=== PATIENT | female | born 1995 | race Caucasian/White ===

== ENCOUNTER 2018-10-29 15:16 | Outpatient (CLI) | payer OTHER ==
[2018-10-29] MEDS ORDERED: PRENATAL TABLE1 EAC1 PO (15:30)
== END 2018-10-29 19:19 | disposition home or self-care (01) ==
LOC: OBS/DEL 15:16
DX: O26.872 Cervical shortening, second trimester (principal); Z34.82 Encounter for supervision of other normal pregnancy, second trimester

== ENCOUNTER 2018-11-09 23:54 | Outpatient (CLI) | payer OTHER ==
[~2018-11-09 23:54] MED LIST: PRENATAL TABLE1 EAC1 PO
== END 2018-11-10 02:34 | disposition home or self-care (01) ==
LOC: OBS/DEL 23:54
DX: O60.02 Preterm labor without delivery, second trimester (principal); O43.122 Velamentous insertion of umbilical cord, second trimester; Z34.82 Encounter for supervision of other normal pregnancy, second trimester; O26.872 Cervical shortening, second trimester

== ENCOUNTER 2018-11-22 07:42 | Inpatient (IN) | payer OTHER ==
[~2018-11-22] VITALS: Ht 162.6 cm; Wt 86.6 kg
[2018-11-22] MEDS ORDERED: PROGESTERONE200 MG PO (08:35)
[2018-11-23] MEDS ORDERED: KEFLEX500 MG PO (12:16)
== END 2018-11-23 13:37 | disposition home or self-care (01) | DRG 832 ==
LOC: LDR 07:42
PROVIDERS: ADMIT Specialist
PROC: 4A1HXCZ Monitoring of Products of Conception, Cardiac Rate, External Approach (ICD-10-PCS; principal; 2018-11-22)
DX: O24.410 Gestational diabetes mellitus in pregnancy, diet controlled (principal); O47.02 False labor before 37 completed weeks of gestation, second trimester; Z34.02 Encounter for supervision of normal first pregnancy, second trimester

== ENCOUNTER 2018-12-20 12:23 | Inpatient (IN) | payer OTHER ==
[~2018-12-20] VITALS: Ht 162.6 cm; Wt 86.6 kg
[~2018-12-20 12:23] MED LIST changes: +KEFLEX500 MG PO; +PROGESTERONE200 MG PO
== END 2018-12-23 15:01 | disposition home or self-care (01) | DRG 807 ==
LOC: OBS/DEL 12:23 → LDR 18:12 → OB/GYN 18:12 → LDR 21:40 → OB/GYN 12-21 02:31
PROVIDERS: ADMIT Specialist
PROC: 3E033VJ Introduction of Other Hormone into Peripheral Vein, Percutaneous Approach (ICD-10-PCS; 2018-12-20)
PROC: 4A1HXCZ Monitoring of Products of Conception, Cardiac Rate, External Approach (ICD-10-PCS; 2018-12-20)
PROC: 10E0XZZ Delivery of Products of Conception, External Approach (ICD-10-PCS; principal; 2018-12-21 07:00)
DX: O60.14X0 Preterm labor third trimester with preterm delivery third trimester, not applicable or unspecified (principal); Z37.0 Single live birth; Z3A.31 31 weeks gestation of pregnancy

== ENCOUNTER 2023-12-17 11:52 | Outpatient (CLI) | payer OTHER | END 2023-12-17 11:53 | disposition home or self-care (01) | LOC: PRENATAL 11:52 | PROVIDERS: ATTEND Obstetrics & Gynecology Maternal & Fetal Medicine | DX: O36.80X0 Pregnancy with inconclusive fetal viability, not applicable or unspecified (principal); Z36.82 Encounter for antenatal screening for nuchal translucency; O26.879 Cervical shortening, unspecified trimester; O24.419 Gestational diabetes mellitus in pregnancy, unspecified control; Z3A.12 12 weeks gestation of pregnancy ==

== ENCOUNTER 2024-01-03 10:02 | Day surgery (SDC) | payer OTHER ==
[2023-12-31 10:37] LABS: HEMATOCRIT 38.1 % (36.0-45.00); HEMOGLOBIN 13.1 g/dL (12.0-15.00); MEAN CELL VOLUME 88.7 fL (80.00-100.00); MEAN CORPUSCULAR HEMOGLOBIN 30.4 pg (27.00-32.0); MEAN CORPUSCULAR HGB CONC 34.3 g/dl (32.0-36.0); PLATELET COUNT 220 K/uL (150-450); RED CELL DISTRIBUTION WIDTH 13.7 % (11.5-14.5)
[2023-12-31 11:10] LABS: INR < 0.93; PARTIAL THROMBOPLASTIN TIME 28.2 SECONDS (22.0-34.0); PROTHROMBIN TIME 10.2 SECONDS (9.0-11.5)
[2023-12-31 12:21] LABS: RH POSITIVE
[2024-01-03] MEDS ORDERED: METRONIDAZOLE/SODIUM CHLORIDE 500 MG/100 ML PIGGYBACK IV ONE (13:45)
[2024-01-03] MEDS ORDERED: POVIDONE-IODINE 118 ML BOTT TOP ONE (13:45)
[2024-01-03] MEDS ORDERED: MORPHINE SULFATE 4 MG/ML VIAL IV ONE (15:40)
[2024-01-04] MEDS ORDERED: METRONIDAZOLE/SODIUM CHLORIDE 5 MG/ML ML IV ONE (19:15)
== END 2024-01-03 20:30 | disposition home or self-care (01) ==
LOC: CIR.AMB 10:02
PROVIDERS: Obstetrics & Gynecology; ATTEND Obstetrics & Gynecology Maternal & Fetal Medicine
DX: O34.32 Maternal care for cervical incompetence, second trimester (principal); Z3A.14 14 weeks gestation of pregnancy

== ENCOUNTER 2024-01-17 14:07 | Outpatient (CLI) | payer OTHER | END 2024-01-17 14:08 | disposition home or self-care (01) | LOC: PRENATAL 14:07 | PROVIDERS: ATTEND Obstetrics & Gynecology Maternal & Fetal Medicine | DX: O26.849 Uterine size-date discrepancy, unspecified trimester (principal); O34.30 Maternal care for cervical incompetence, unspecified trimester; O26.879 Cervical shortening, unspecified trimester; O24.419 Gestational diabetes mellitus in pregnancy, unspecified control; Z3A.16 16 weeks gestation of pregnancy ==

== ENCOUNTER 2024-02-08 12:05 | Outpatient (CLI) | payer OTHER | END 2024-02-08 12:06 | disposition home or self-care (01) | LOC: PRENATAL 12:05 | PROVIDERS: ATTEND Obstetrics & Gynecology Maternal & Fetal Medicine | DX: O44.00 Complete placenta previa NOS or without hemorrhage, unspecified trimester (principal); O34.30 Maternal care for cervical incompetence, unspecified trimester; O26.879 Cervical shortening, unspecified trimester; O24.419 Gestational diabetes mellitus in pregnancy, unspecified control; Z3A.19 19 weeks gestation of pregnancy ==

== ENCOUNTER 2024-04-03 10:45 | Outpatient (CLI) | payer OTHER | END 2024-04-03 10:46 | disposition home or self-care (01) | LOC: PRENATAL 10:45 | PROVIDERS: ATTEND Obstetrics & Gynecology Maternal & Fetal Medicine | DX: O36.8199 Decreased fetal movements, unspecified trimester, other fetus (principal); Z14.8 Genetic carrier of other disease; O34.30 Maternal care for cervical incompetence, unspecified trimester; O26.879 Cervical shortening, unspecified trimester; O24.419 Gestational diabetes mellitus in pregnancy, unspecified control; Z3A.28 28 weeks gestation of pregnancy ==

== ENCOUNTER 2024-05-13 13:22 | Outpatient (CLI) | payer OTHER | END 2024-05-13 13:24 | disposition home or self-care (01) | LOC: PRENATAL 13:22 | PROVIDERS: ATTEND Obstetrics & Gynecology Maternal & Fetal Medicine | DX: O36.8199 Decreased fetal movements, unspecified trimester, other fetus (principal); O34.30 Maternal care for cervical incompetence, unspecified trimester; O26.879 Cervical shortening, unspecified trimester; O24.419 Gestational diabetes mellitus in pregnancy, unspecified control; O99.019 Anemia complicating pregnancy, unspecified trimester; Z14.8 Genetic carrier of other disease; Z3A.34 34 weeks gestation of pregnancy ==

== ENCOUNTER 2024-06-09 08:55 | Inpatient (IN) | payer OTHER ==
[2024-06-09] VITALS (9 sets, daily range): BP systolic 97–123; BP diastolic 55–76; O2SAT 100
[~2024-06-09] VITALS: Ht 152.4 cm; Wt 87.5 kg
[2024-06-09 10:17] LABS: HEMATOCRIT 34.4 % (36.0-45.00); HEMOGLOBIN 11.4 g/dL (12.0-15.00); MEAN CELL VOLUME 87.3 fL (80.00-100.00); MEAN CORPUSCULAR HEMOGLOBIN 28.9 pg (27.00-32.0); MEAN CORPUSCULAR HGB CONC 33.1 g/dl (32.0-36.0); PLATELET COUNT 136 K/uL (150-450); RED BLOOD COUNT 3.95 M/uL (4.00-6.00); RED CELL DISTRIBUTION WIDTH 14.7 % (11.5-14.5)
[2024-06-09 10:20] LABS: URINE APPEARANCE Clear; URINE BILIRRUBIN Negative (NEGATIVE); URINE BLOOD Negative; URINE COLOR Yellow; URINE KETONE 15 (NEGATIVE); URINE LEUKOCYTE Negative; URINE NITRATE Negative; URINE PROTEIN Negative (NEGATIVE); URINE UROBILINOGEN 0.2 E.U./dl
[2024-06-09 10:23] LABS: URINE BACTERIA 67.3 uL (0.0-1933); URINE EPITHELIAL CELLS 8.2 uL (0.0-38.8); URINE WBC 4.7 uL (0.0-23.2)
[2024-06-09 10:26] LABS: URINE GLUCOSE 100 MG/DL (NEGATIVE); URINE RBC 1.9 uL (0.0-20.8)
[2024-06-09] MEDS ORDERED: OXYTOCIN 500 ML IV SCH (10:30)
[2024-06-09 10:40] LABS: INR < 0.93; PARTIAL THROMBOPLASTIN TIME 27.5 SECONDS (22.0-34.0); PROTHROMBIN TIME 10.1 SECONDS (9.0-11.5)
[2024-06-09 11:06] LABS: ALBUMIN 2.5 gm/dL (3.4-5.0); BILIRUBIN TOTAL 0.24 mg/dL (0.3-1.2); CALCIUM 8.3 mg/dL (8.5-10.1); CREATININE SERUM 0.56 mg/dL (0.55-1.02); GFR 127.11; GLOBULINA 3.5 G/DL (2.4-3.5)
[2024-06-09] MEDS ORDERED: ZOFRAN8 MG PO (11:43)
[2024-06-09] MEDS ORDERED: PEPCID AC20 MG PO (11:44)
[2024-06-09] MEDS ORDERED: MEPERIDINE HCL 25 MG/ML AMPUL IV ONE (12:45)
[2024-06-09] MEDS ORDERED: PROMETHAZINE HCL 25 MG/ML AMPUL IV ONE (12:45)
[2024-06-09] MEDS ORDERED: IBUprofen 600 MG TABLET PO SCH (20:30)
[2024-06-09] MEDS ORDERED: LIDOCAINE HCL 1% 10ML VIAL PERCUT ONE (20:45)
[2024-06-09] MEDS ORDERED: CHLORHEXIDINE GLUCONATE 120 ML BOTTLE TOP ONE (20:45)
[2024-06-09] MEDS ORDERED: OXYTOCIN 1,000 ML IV SCH (20:45)
[2024-06-09] MEDS ORDERED: ERYTHROMYCIN BASE OPHT 1GM EACH TUBE OP ONE (20:45)
[2024-06-10 01:18] VITALS: BP 104/66
[2024-06-10] MEDS ORDERED: IBUprofen 600 MG TABLET PO SCH (08:00)
[2024-06-10 08:04] VITALS: BP 107/70
[2024-06-10 16:05] VITALS: BP 110/75
[2024-06-11 01:10] VITALS: BP 101/63
[2024-06-11 08:00] VITALS: BP 114/77
== END 2024-06-11 13:23 | disposition home or self-care (01) | DRG 807 ==
LOC: OBS/DEL 08:55 → LDR 10:21 → OBS/DEL 10:21 → OB/GYN 20:51
PROVIDERS: ADMIT Specialist; ATTEND Specialist
PROC: 10E0XZZ Delivery of Products of Conception, External Approach (ICD-10-PCS; principal; 2024-06-09)
PROC: 0HQ9XZZ Repair Perineum Skin, External Approach (ICD-10-PCS; 2024-06-09)
PROC: 3E033VJ Introduction of Other Hormone into Peripheral Vein, Percutaneous Approach (ICD-10-PCS; 2024-06-09)
PROC: 4A1HXCZ Monitoring of Products of Conception, Cardiac Rate, External Approach (ICD-10-PCS; 2024-06-09)
DX: O70.0 First degree perineal laceration during delivery (principal); Z37.0 Single live birth; Z3A.37 37 weeks gestation of pregnancy